=== PATIENT | male | born 1995 | race Caucasian/White ===

== ENCOUNTER → 2017-08-12 | Outpatient (CLI) | payer BC ==
[2017-08-12 18:35] LABS: ALT 21 U/L (21-72); AST 19 U/L (17-59); Albumin 4.4 g/dL (3.5-5.0); Alkaline Phosphatase 68 U/L (38-126); Anion Gap 12 mmol/L; Blood Urea Nitrogen 16 mg/dL (9-20); Calcium 9.9 mg/dL (8.4-10.2); Carbon Dioxide 28 mmol/L (22-30); Chloride 102 mmol/L (98-107); Cholesterol 174 mg/dL (<200); Glucose 98 mg/dL (74-99); HDL Cholesterol 42 mg/dL (40-60); LDL Cholesterol,Calculated 77 mg/dL (0-99); Potassium 3.9 mmol/L (3.5-5.1); Sodium 142 mmol/L (137-145); Total Bilirubin 0.9 mg/dL (0.2-1.3); Total Protein 7.2 g/dL (6.3-8.2); Triglycerides 273 mg/dL (<150)
[2017-08-12 18:43] LABS: Basophils # (A) 0.1 k/uL (0-0.2); Basophils % (A) 1 %; Eosinophils # (A) 0.1 k/uL (0-0.7); Eosinophils % (A) 2 %; HCT 45.2 % (39.0-53.0); Lymphocytes # (A) 1.7 k/uL (1.0-4.8); Lymphocytes % (A) 29 %; MCH 28.3 pg (25.0-35.0); MCHC 33.2 g/dL (31.0-37.0); MCV 85.5 fL (80.0-100.0); Mean Platelet Volume 7.1; Monocytes # (A) 0.4 k/uL (0-1.0); Monocytes % (A) 6 %; Neutrophils # (A) 3.5 k/uL (1.3-7.7); Neutrophils % (A) 60 %; Platelet Count 271 k/uL (150-450); RBC 5.28 m/uL (4.30-5.90); RDW 12.4 % (11.5-15.5); WBC 5.9 k/uL (4.0-11.0)
[2017-08-12 18:51] LABS: T4, Free (Free Thyroxine) 1.01 ng/dL (0.78-2.19)
== END | disposition home or self-care (01) ==
LOC: MMGSC 15:32
PROVIDERS: ATTEND Family Medicine
DX: Z00.00 Encounter for general adult medical examination without abnormal findings (principal)
CPT/HCPCS: 36415; 80053; 80061; 84439; 84443; 85025

== ENCOUNTER → 2017-08-15 | Outpatient (CLI) | payer BC ==
--- NOTE | 2017-08-15 09:22 | FL ---
EXAMINATION TYPE: FL UGI air DATE OF EXAM: 08/15/2017 COMPARISON: NONE HISTORY: Gastroesophageal reflux TECHNIQUE: A double contrast UGI study is performed. FINDINGS: Esophagus dilates to normal caliber has normal contour to the gastroesophageal junction. Gastroesopha geal junction opens to normal caliber. Small amount reflux was evident during this examination. A sma ll sliding type hiatal hernia which is self reducing is present. Fundus body and antrum of the stomach are well visualized. No intraluminal or extramural defects is e vident. Barium empties into the normally positioned duodenal cap and sweep. Duodenal folds are somewhat hyper trophied. Correlate for acute duodenitis. There is some superior defect along the superior duodenal b ulb on fluoroscopy and overhead radiographs. Small ulcer is not excluded. Fluoroscopy time: 1 minute 30 seconds. Images: 21 IMPRESSION: 1. Mild gastroesophageal reflux in the distal esophagus. 2. Self reducing sliding type hiatal hernia. 3. Duodenitis. 4. Possible small ulcer superior duodenal bulb.
== END ==
LOC: RADFLMAIN 08:23
PROVIDERS: ATTEND Family Medicine
DX: K21.9 Gastro-esophageal reflux disease without esophagitis (principal); K44.9 Diaphragmatic hernia without obstruction or gangrene; K29.80 Duodenitis without bleeding
CPT/HCPCS: 74246

== ENCOUNTER 2017-10-01 09:09 | Day surgery (SDC) | payer BC ==
[2017-09-27 08:58] VITALS: BMI 26.2
[~2017-10-01 09:09] MED LIST: LACTATED RINGERS 1,000 ML IV SCH; LIDOCAINE 1% 20 ML VIAL (10MG/ML) FOR IV START INTRADERMA PRN
[2017-10-01 09:28] VITALS: RESP 16; TEMP 98.1
[2017-10-01] MEDS ORDERED: PROPOFOL 10 MG/ML 20 ML VIAL IV ONE (10:28)
--- NOTE | 2017-10-01 11:02 | P.PCN ---
Date of Procedure: 10/01/17 Procedure(s) Performed: Procedure: Esophagogastroduodenoscopy and biopsy. Preoperative diagnosis: Chronic reflux symptoms. Postoperative diagnosis: 1. Hiatal hernia and LA grade B distal esophagitis. 2. Mild gastritis. 3. Multiple biopsies obtained from the duodenum, antrum and esophagus. Preparation sedation: Was provided by anesthesia. Brief clinical history: The patient is a 22-year-old male who is scheduled for this evaluation because of chronic reflux symptoms. The patient has used over- the-counter medical therapy intermittently and more recently he has been taking PPI with apparent response. No alarm symptoms. This evaluation is to assess his esophagitis, rule out complicated reflux disease or eosinophilic esophagitis , other etiology and guide therapy. Procedure: With the patient on his left lateral decubitus position and after informed consent and adequate sedation, I passed the Olympus-GIF 160 video upper endoscope through the cricopharyngeus down the esophagus. GE junction was around 38 cm from the incisors. There was fine corrugations in the distal esophagus and the appearance of early pseudodiverticulation but no restricting strictures or ulcers. No Terrell's esophagus. The endoscope was then passed into the stomach which was insufflated with air and inspected in detail including the retroflex view in the cardia. There was some mottling and erythema in the antrum but no ulcers or erosions. Pyloric channel, duodenal bulb, post bulbar area and descending duodenum appeared within normal limits. Because of his symptoms, I obtained biopsies from the duodenum, antrum and esophagus then the endoscope was withdrawn. I also obtained pictures of the esophagus before the endoscope was withdrawn. The patient tolerated the procedure well. Plan: The patient was reassured. Will continue antireflux diet and measures and continue his PPI therapy. I would like to see him in the office in around 2 months and make further adjustments based on his course and biopsy results. I will keep you updated on his progress.
[2017-10-01 11:32] VITALS: BP 138/78; PULSE 61
== END 2017-10-01 11:45 | disposition home or self-care (01) ==
LOC: ORWHC2ENDO 09:09
DX: K21.0 Gastro-esophageal reflux disease with esophagitis (principal); K44.9 Diaphragmatic hernia without obstruction or gangrene; K29.70 Gastritis, unspecified, without bleeding; Z79.899 Other long term (current) drug therapy
CPT/HCPCS: 88305; 43239; J2704